=== PATIENT | male | born 1970 | race Hispanic/Latino ===

== ENCOUNTER 2021-03-04 16:30 | Outpatient (RCR) | payer OTHER | END 2021-03-15 | LOC: OT 16:30 | PROVIDERS: ATTEND Specialist | DX: M77.11 Lateral epicondylitis, right elbow (principal) ==

== ENCOUNTER → 2021-04-15 | Outpatient (RCR) | payer OTHER | LOC: OT 03-18 16:43 → PT 03-25 15:00 → OT 04-01 16:00 → PT 04-01 16:17 → OT 04-03 16:10 → PT 04-03 16:11 → OT 04-07 16:30 → PT 04-08 17:00 → OT 16:00 → PT 16:22 | PROVIDERS: ATTEND Specialist | DX: M77.11 Lateral epicondylitis, right elbow (principal) ==

== ENCOUNTER → 2021-05-15 | Outpatient (RCR) | payer OTHER | LOC: PT 04-22 16:13 → OT 04-24 16:00 → PT 04-24 16:06 → OT 05-01 16:00 → PT 05-05 17:00 → OT 05-07 15:51 → PT 05-13 15:59 → OT 15:58 | PROVIDERS: ATTEND Specialist | DX: M70.61 Trochanteric bursitis, right hip (principal); M70.62 Trochanteric bursitis, left hip; M62.81 Muscle weakness (generalized) | CPT/HCPCS: 97139 ==